=== PATIENT | female | born 1965 | race Hispanic/Latino ===

== ENCOUNTER 2022-05-12 06:32 | Observation (INO) | payer BC ==
[2022-05-07 16:02] LABS: BASOPHILS % (AUTO) 0.1 % (0.0-5.0); HEMATOCRIT 40.8 % (36-48); LYMPHOCYTES % (AUTO) 41.6 % (21.0-51.0); MEAN CORPUSCULAR HEMOGLOBIN 29.1 pg (27.0-33.0); MEAN CORPUSCULAR HGB CONC 32.8 g/dL (32.0-36.0); MEAN CORPUSCULAR VOLUME 88.7 fL (79-99); MONOCYTES % (AUTO) 9.2 % (3.0-13.0); NEUTROPHILS % (AUTO) 48.9 % (40.0-77.0); PLATELET COUNT (AUTO) 287 K/uL (130-400); RED CELL DISTRIBUTION WIDTH 13.1 % (11.0-15.5); WHITE BLOOD COUNT (AUTO) 8.9 K/uL (4.8-10.8)
[2022-05-07 16:12] LABS: CREATININE 0.5 mg/dL (0.5-1.5); POTASSIUM 3.6 mmol/L (3.5-5.1)
[2022-05-07 16:14] LABS: INR 0.93 (0.85-1.15); PROTHROMBIN TIME 10.1 SEC (9.6-11.6)
[2022-05-07 16:15] LABS: PARTIAL THROMBOPLASTIN TIME 28.8 SEC (26.3-35.5)
[2022-05-11 10:45] VITALS: BP 146/82
[2022-05-12] VITALS (22 sets, daily range): BP systolic 118–160; BP diastolic 57–97
[~2022-05-12] VITALS: Ht 152.4 cm; Wt 64.7 kg
[~2022-05-12 06:32] MED LIST: CEVI30CA7 PO; FOLIC ACID PO; LACTATED RINGERS 1000ML 1,000 ML IV SCH; LATA7.5D OU; LOSA50TA64 PO
[2022-05-12] MEDS: CEFAZOLIN SODIUM 1 GM VIAL IVP SCH ×3 (08:00→17:00)
[2022-05-12] MEDS ORDERED: CYCL30DR OP (08:16)
[2022-05-12] MEDS ORDERED: SUCCINYLCHOLINE 200MG/10ML SYR ONE (10:55)
[2022-05-12] MEDS ORDERED: PROPOFOL 10 MG/ML 20ML VIAL IV ONE ×3 (10:55→13:48)
[2022-05-12] MEDS ORDERED: ROCURONIUM 10MG/1ML SYR 10 MG/ML ML ONE (10:55)
[2022-05-12] MEDS ORDERED: FENTANYL CITRATE PF 50 MCG/1 ML 2ML VIAL ONE ×2 (10:56→12:16)
[2022-05-12] MEDS ORDERED: LIDOCAINE HCL 1% MDV 50ML VIAL ONE (10:59)
[2022-05-12] MEDS ORDERED: PROPOFOL 1000 MG/100 ML 100 ML IV ONE (10:59)
[2022-05-12] MEDS ORDERED: ROPIVACAINE 0.5% 5MG/ML 30ML IJ ONE (11:00)
[2022-05-12] MEDS ORDERED: FAMOTIDINE 20MG VIAL IV ONE (11:00)
[2022-05-12] MEDS ORDERED: MIDAZOLAM HCL 1 MG/ML 2ML VIAL ONE (11:07)
[2022-05-12] MEDS ORDERED: TRANEXAMIC ACID 1000MG/10ML ONE (11:46)
[2022-05-12] MEDS ORDERED: MEPERIDINE-PF 25 MG/ML SYG ONE (11:57)
[2022-05-12] MEDS ORDERED: ROPIVICAINE 250MG+KETOROLAC 15MG+EPINEPHRINE 0.3+CLONIDINE 80 IV PRN ×5 (12:00)
[2022-05-12] MEDS ORDERED: HYDROCODONE/ACETAMINOPHEN 5/325 MG TAB PO PRN (12:00)
[2022-05-12] MEDS ORDERED: LIDOCAINE HCL-MPF 1% 2ML VIAL IV PRN (12:00)
[2022-05-12] MEDS: 0.9%NACL 1000ML 1,000 ML IV SCH ×2 (12:00→22:00)
[2022-05-12] MEDS: TRAMADOL HCL 50 MG TABLET PO SCH ×2 (12:00→18:15)
[2022-05-12] MEDS ORDERED: POTASSIUM CHLORIDE 20MEQ/100ML 100 ML IV PRN (12:00)
[2022-05-12] MEDS ORDERED: FERROUS FUMARATE 324 MG TABLET PO PRN (12:00)
[2022-05-12] MEDS ORDERED: HYDROCODONE/ACETAMINOPHEN 10/325 MG TAB PO PRN (12:00)
[2022-05-12] MEDS: ACETAMINOPHEN 500 MG TABLET PO SCH ×2 (12:00→21:38)
[2022-05-12] MEDS ORDERED: KCL 20 MEQ ERTAB PO PRN (12:00)
[2022-05-12] MEDS ORDERED: ONDANSETRON 4MG INJ IVP PRN (12:00)
[2022-05-12] MEDS ORDERED: ARTIFICIAL TEARS 3.5 GM OINTMENT ONE (12:23)
[2022-05-12] MEDS ORDERED: ONDANSETRON 4MG INJ ONE (12:30)
[2022-05-12] MEDS ORDERED: EPHEDRINE SULFATE 50 MG/ML AMPULE ONE (12:34)
[2022-05-12] MEDS: CEVIMELINE HCL 30 MG PO SCH ×3 (13:00→21:00)
[2022-05-12] MEDS: INSULIN HUMULIN R 100 UNIT/ML 3ML SQ SCH ×2 (16:30→21:00)
[2022-05-12] MEDS: KETOROLAC 15MG/ML VIAL (15MG/ML) IV PRN (16:42)
[2022-05-12] MEDS: LATANOPROST 2.5 ML DROPS OU SCH (21:00)
[2022-05-12] MEDS: ***HM***(Cyclosporine (Restasis) 1 EACH) OP SCH (21:00)
[2022-05-12] MEDS: ASPIRIN 81 MG EC TAB PO SCH (21:36)
[2022-05-12] MEDS: FAMOTIDINE 20MG TAB PO SCH (21:36)
[2022-05-13] VITALS: BP 117/70
[2022-05-13] MEDS: TRAMADOL HCL 50 MG TABLET PO SCH ×4 (01:24→17:40)
[2022-05-13] MEDS: CEFAZOLIN SODIUM 1 GM VIAL IVP SCH (01:24)
[2022-05-13 04:00] VITALS: BP 126/71
[2022-05-13] MEDS: ACETAMINOPHEN 500 MG TABLET PO SCH ×3 (04:00→20:42)
[2022-05-13 04:56] LABS: CREATININE 0.6 mg/dL (0.5-1.5); POTASSIUM 3.5 mmol/L (3.5-5.1)
[2022-05-13 05:27] LABS: HEMATOCRIT 34.6 % (36-48); MEAN CORPUSCULAR HEMOGLOBIN 28.7 pg (27.0-33.0); MEAN CORPUSCULAR HGB CONC 32.4 g/dL (32.0-36.0); MEAN CORPUSCULAR VOLUME 88.7 fL (79-99); RED BLOOD CELL COUNT(AUTO) 3.9 MIL/uL (4.00-5.50); RED CELL DISTRIBUTION WIDTH 13.2 % (11.0-15.5); WHITE BLOOD COUNT (AUTO) 13.3 K/uL (4.8-10.8)
[2022-05-13] MEDS: INSULIN HUMULIN R 100 UNIT/ML 3ML SQ SCH ×4 (06:46→20:45)
[2022-05-13] MEDS: 0.9%NACL 1000ML 1,000 ML IV SCH (07:39)
[2022-05-13] MEDS: ***HM***(Cyclosporine (Restasis) 1 EACH) OP SCH ×2 (08:33→20:42)
[2022-05-13] MEDS: ASPIRIN 81 MG EC TAB PO SCH ×2 (08:33→20:41)
[2022-05-13] MEDS: FAMOTIDINE 20MG TAB PO SCH ×2 (08:34→20:41)
[2022-05-13] MEDS: POLYETHYLENE GLYCOL 3350 17 GM POWD.PACK PO SCH (08:34)
[2022-05-13] MEDS: LOSARTAN 50 MG TABLET PO SCH (08:34)
[2022-05-13] MEDS: CEVIMELINE HCL 30 MG PO SCH ×4 (08:34→20:43)
[2022-05-13] MEDS: MORPHINE 4 MG SYG IVP PRN ×2 (08:35→14:16)
[2022-05-13 08:38] VITALS: BP 140/74
[2022-05-13] MEDS: POTASSIUM CHLORIDE 10% ELIXIR 20 MEQ/15 ML UDCUP PO PRN ×2 (08:38→12:02)
[2022-05-13 11:15] VITALS: BP 142/83
[2022-05-13 17:40] VITALS: BP 131/68
[2022-05-13 20:00] VITALS: BP 155/83
[2022-05-13] MEDS: LATANOPROST 2.5 ML DROPS OU SCH (20:42)
[2022-05-14] VITALS: BP 124/79
[2022-05-14] MEDS: TRAMADOL HCL 50 MG TABLET PO SCH ×3 (00:19→12:29)
[2022-05-14 04:00] VITALS: BP 159/74
[2022-05-14] MEDS: ACETAMINOPHEN 500 MG TABLET PO SCH ×2 (04:31→12:30)
[2022-05-14] MEDS: KETOROLAC 15MG/ML VIAL (15MG/ML) IV PRN (04:31)
[2022-05-14] MEDS: INSULIN HUMULIN R 100 UNIT/ML 3ML SQ SCH ×2 (06:18→11:30)
[2022-05-14 08:02] VITALS: BP 127/77
[2022-05-14] MEDS: ASPIRIN 81 MG EC TAB PO SCH (08:39)
[2022-05-14] MEDS: FAMOTIDINE 20MG TAB PO SCH (08:39)
[2022-05-14] MEDS: LOSARTAN 50 MG TABLET PO SCH (08:39)
[2022-05-14] MEDS: POLYETHYLENE GLYCOL 3350 17 GM POWD.PACK PO SCH (08:40)
[2022-05-14] MEDS: MORPHINE 4 MG SYG IVP PRN (08:40)
[2022-05-14] MEDS: CEVIMELINE HCL 30 MG PO SCH ×2 (08:41→13:00)
[2022-05-14] MEDS: ***HM***(Cyclosporine (Restasis) 1 EACH) OP SCH (08:41)
[2022-05-14 11:22] VITALS: BP 132/76
[2022-05-14 16:06] VITALS: BP 142/77
[2022-05-15] MEDS ORDERED: BISACODYL 10 MG SUPP.RECT RC PRN (12:00)
== END 2022-05-14 17:53 | disposition home or self-care (01) ==
LOC: DAH 06:32 → DAHIP 06:33 → DAH 06:33 → 4BH 15:23
PROVIDERS: ADMIT Orthopaedic Surgery; ATTEND Orthopaedic Surgery
DX: M17.11 Unilateral primary osteoarthritis, right knee (principal); Z20.822 Contact with and (suspected) exposure to COVID-19; M84.361A Stress fracture, right tibia, initial encounter for fracture; Z96.651 Presence of right artificial knee joint; Z79.899 Other long term (current) drug therapy; Z98.890 Other specified postprocedural states
CPT/HCPCS: 27447; S2900; 36415; 64447; 76942; 80048; 82948; 85025; 85027; 85610; 85730; 87635; 87641; 93005; 96374; 96375; 96376; 97039; C9803; G0378; J0330; J0690; J1885; J2175; J2250; J2270; J2405; J2704; J2795; J3010; J3490; J7030; J7120